=== PATIENT | male | born 1945 | race African-American/Black ===

== ENCOUNTER 2021-03-12 08:20 | Outpatient (REF) | payer OTHER, SELFPAY ==
--- NOTE | ~2021-03-12 | XR_ITS ---
EXAMINATION: XR KNEE AP STANDING, BILATERAL XR KNEE, BILATERAL CLINICAL INFORMATION: Pain. COMPARISON: None TECHNIQUE: AP bilateral knee. 2 views each knee. FINDINGS: BILATERAL AP KNEE: There is severe loss of medial compartment joint space with periarticular spurring bilaterally. The lateral compartment joint space is minimally reduced. No loose bodies or bony erosive changes seen. No fracture or dislocation seen. RIGHT KNEE: There is mild loss of patellofemoral compartment joint space with periarticular spurring. No joint effusion seen. There are no loose bodies. There are anterior tibial enthesophytes. LEFT KNEE: There is mild loss of left patellofemoral compartment joint space with periarticular spurring. There is no joint effusion seen. Enthesophytes are seen along the anterior and posterior tibial plateau. No loose bodies or bony erosive changes seen. XR/XR knee standing BI IMPRESSION: Severe medial and mild patellofemoral compartment arthritic changes. There is no abnormal joint effusion except for moderate periarticular spurring and enthesophytes. No loose body seen.
--- NOTE | ~2021-03-12 | XR_ITS ---
EXAMINATION: XR KNEE AP STANDING, BILATERAL XR KNEE, BILATERAL CLINICAL INFORMATION: Pain. COMPARISON: None TECHNIQUE: AP bilateral knee. 2 views each knee. FINDINGS: BILATERAL AP KNEE: There is severe loss of medial compartment joint space with periarticular spurring bilaterally. The lateral compartment joint space is minimally reduced. No loose bodies or bony erosive changes seen. No fracture or dislocation seen. RIGHT KNEE: There is mild loss of patellofemoral compartment joint space with periarticular spurring. No joint effusion seen. There are no loose bodies. There are anterior tibial enthesophytes. LEFT KNEE: There is mild loss of left patellofemoral compartment joint space with periarticular spurring. There is no joint effusion seen. Enthesophytes are seen along the anterior and posterior tibial plateau. No loose bodies or bony erosive changes seen. XR/XR knee RT 2V IMPRESSION: Severe medial and mild patellofemoral compartment arthritic changes. There is no abnormal joint effusion except for moderate periarticular spurring and enthesophytes. No loose body seen.
--- NOTE | ~2021-03-12 | XR_ITS ---
EXAMINATION: XR KNEE AP STANDING, BILATERAL XR KNEE, BILATERAL CLINICAL INFORMATION: Pain. COMPARISON: None TECHNIQUE: AP bilateral knee. 2 views each knee. FINDINGS: BILATERAL AP KNEE: There is severe loss of medial compartment joint space with periarticular spurring bilaterally. The lateral compartment joint space is minimally reduced. No loose bodies or bony erosive changes seen. No fracture or dislocation seen. RIGHT KNEE: There is mild loss of patellofemoral compartment joint space with periarticular spurring. No joint effusion seen. There are no loose bodies. There are anterior tibial enthesophytes. LEFT KNEE: There is mild loss of left patellofemoral compartment joint space with periarticular spurring. There is no joint effusion seen. Enthesophytes are seen along the anterior and posterior tibial plateau. No loose bodies or bony erosive changes seen. XR/XR knee LT 2V IMPRESSION: Severe medial and mild patellofemoral compartment arthritic changes. There is no abnormal joint effusion except for moderate periarticular spurring and enthesophytes. No loose body seen.
== END 2021-03-12 08:21 | disposition home or self-care (01) ==
LOC: HO.HOSX 08:20
PROVIDERS: Visit Provider Physician Assistant
DX: M17.0 Bilateral primary osteoarthritis of knee (principal)
CPT/HCPCS: 20610; 73560; 73565; 99212; J1020

== ENCOUNTER → 2021-06-11 09:07 | Outpatient (BNVA) | payer OTHER, SELFPAY | PROVIDERS: PCP Family Medicine; Visit Provider Physician Assistant | DX: M25.562 Pain in left knee (principal); M25.561 Pain in right knee | CPT/HCPCS: 20610; J7318 ==

== ENCOUNTER 2024-03-30 12:37 | Outpatient (REF) | payer OTHER, SELFPAY ==
--- NOTE | ~2024-03-30 | XR_ITS ---
EXAMINATION: XR BILATERAL KNEES CLINICAL INFORMATION: Pain in left knee. Unilateral primary osteoarthritis right knee. COMPARISON: Bilateral knees 03/12/2021. TECHNIQUE: AP standing, lateral and sunrise views of bilateral knees. FINDINGS: BILATERAL KNEES AP STANDING: Severe narrowing of the bilateral medial compartments with marginal osteophytes redemonstrated. Minimal narrowing of the lateral compartments. The bones are diffusely demineralized. RIGHT KNEE: No significant joint effusion. Increased degenerative changes in the right patellofemoral compartment with narrowing and hypertrophic change. LEFT KNEE: No significant joint effusion. Progression of narrowing of the left patellofemoral compartment with hypertrophic change. XR/XR knee LT 3V IMPRESSION: Severe degenerative changes in the bilateral knees, most notable in the medial compartments.
--- NOTE | ~2024-03-30 | XR_ITS ---
EXAMINATION: XR BILATERAL KNEES CLINICAL INFORMATION: Pain in left knee. Unilateral primary osteoarthritis right knee. COMPARISON: Bilateral knees 03/12/2021. TECHNIQUE: AP standing, lateral and sunrise views of bilateral knees. FINDINGS: BILATERAL KNEES AP STANDING: Severe narrowing of the bilateral medial compartments with marginal osteophytes redemonstrated. Minimal narrowing of the lateral compartments. The bones are diffusely demineralized. RIGHT KNEE: No significant joint effusion. Increased degenerative changes in the right patellofemoral compartment with narrowing and hypertrophic change. LEFT KNEE: No significant joint effusion. Progression of narrowing of the left patellofemoral compartment with hypertrophic change. XR/XR knee RT 3V IMPRESSION: Severe degenerative changes in the bilateral knees, most notable in the medial compartments.
== END 2024-03-30 12:38 | disposition home or self-care (01) ==
LOC: HO.HOSX 12:37
PROVIDERS: Visit Provider Physician Assistant
DX: M17.0 Bilateral primary osteoarthritis of knee (principal)
CPT/HCPCS: 20610; 73562; 99212; J1010

== ENCOUNTER 2024-03-30 14:20 | Outpatient (AMB) | payer OTHER, SELFPAY ==
--- NOTE | 2024-03-30 14:33 | MHC.OFFVIS ---
Vital Signs 03/30/24 14:40 Height 6 ft 2 in Weight 223 lb BMI 28.6 Intake Visit Reasons: OV- B/L knee OA Intake Note: Steve a 78 year old male who presents today as a new patient for an evaluation of bilateral knees. Last Durolane injections on 06/11/21. Patient reports injections provided him with relief up until this point. He states he would like to try cortisone injections again due to them giving him relief for 6 months. Allergies No Known Allergies Allergy (Verified 03/30/24 14:36) HPI HPI OV- B/L knee OA: Details: 78-year-old male who returns to the office today for a follow-up of bilateral knee pain. He currently states he has intermittent pain in his bilateral knees that is aggravated with prolonged standing and ambulation. He continues to work on exercises as instructed. He had his last bilateral Durolane injection on 06/11/21 which provided him good relief until recently. He would like to try cortisone injection again as it previously gave him relief for 6 months. He does not have a history of diabetes. [facility] Social History (Updated 03/30/24 @ 14:40 by Cesilia Cullen) Alcohol intake: never Patient Tobacco Use Status: Never used Tobacco Current occupational status: retired Current occupation: left handed Review of Systems Const All systems reviewed & are unremarkable except as noted in HPI and below Physical Exam Vital Signs: BMI result Body Mass Index 28.6 Extrem Other: Bilateral knee: Skin intact, no erythema or joint effusion. Tenderness along the medial and lateral joint line. Full ROM with crepitus. Negative Tian?s. No ligamentous laxity. NVI. Office Procedures Joint Injection/Drain Joint Injection/Drain Primary Site: right knee Secondary Site: left knee Prep: site was prepped using aseptic technique, ethochloride spray was applied and injection warnings given Injected: 40 mg of, DepoMedrol, with 8 mL of, 1% plain lidocaine and in the joint Approach Used: anterolateral Procedure: The patient tolerated the procedure well and there was some relief with the local anesthesia Coding 25933 - Glenohumeral/Tronchanteric Bursa/Intraarticular Procedure code (CPT) selection complete Results Reviewed Results Reviewed: Xrays were obtained in the office today and personally reviewed by of karissa knee show moderate oa Assessment & Plan Assessment & Plan (1) Bilateral primary osteoarthritis of knee: Code(s): M17.0 - Bilateral primary osteoarthritis of knee Category: Medical Plan We discussed options today which include steroid injection. They did consent to move forward with the bilateral injection, which was tolerated well. I recommended rest, ice and elevation and OTC anti-inflammatories PRN for discomfort. If symptoms persist or worsens over the next 6-8 weeks, patient will contact the office. He is also interested in repeating gel injections, which we will get prior auth for. Orders: Orders XR knee LT 3V 03/30/24 M25.562 - Pain in left knee XR knee RT 3V 03/30/24 M17.11 - Unilateral primary osteoarthritis, right knee Patient Instructions: Scribed for Radha Lima PA-C, by Roderick Bryant biomedical photographer, on 03/30/2024 at 2:15 PM EST.? I, Radha Lima PA-C, have personally reviewed and agree with the information entered by the scribe. Coding Level of Care Code Est Pt Level 3 (73358) Diagnoses Bilateral primary osteoarthritis of knee M17.0 CPT Codes Coding - Joint 7: 00238 - Glenohumeral/Tronchanteric Bursa/Intraarticular ([id number])
[2024-03-30 14:40] VITALS: BMI 28.6
== END 2024-03-30 15:06 | disposition home or self-care (01) ==
PROVIDERS: PCP Family Medicine; Visit Provider Physician Assistant
DX: M17.0 Bilateral primary osteoarthritis of knee (principal)
CPT/HCPCS: 20610; 99213

== ENCOUNTER 2024-11-06 11:32 | Outpatient (AMB) | payer OTHER, SELFPAY ==
--- NOTE | 2024-11-06 11:36 | MHC.OFFVIS ---
Vital Signs 11/06/24 11:41 Height 6 ft 2 in Weight 223 lb BMI 28.6 Intake Visit Reasons: Inj- OA bilateral knee Durolane inj Intake Note: Steve 79 yr old male presents today for his follow up visit for his bilateral knee O.A Durolane injection. Allergies No Known Allergies Allergy (Verified 03/30/24 14:36) Medication List - Last Reconciled 11/06/24 by Radha Lima PA-C acetaminophen ER (Tylenol Arthritis Pain) 650 mg PO Q12H apixaban (Eliquis) 5 mg PO BID aspirin (Adult Low Dose Aspirin) 81 mg PO DAILY pravastatin 10 mg PO BEDTIME HPI HPI Inj- OA bilateral knee Durolane inj: Details: 79-year-old male returns to the office today for bilateral knee pain. He received cortisone injections at his last appointment which was successful. He was approved for gel injections which she would like to proceed with today. [facility] Social History Alcohol intake: never Patient Tobacco Use Status: Never used Tobacco Current occupational status: retired Current occupation: left handed Review of Systems Const All systems reviewed & are unremarkable except as noted in HPI and below Physical Exam Vital Signs: BMI result Body Mass Index 28.6 Extrem Other: Bilateral knee: Skin intact, no erythema or joint effusion. Tenderness along the medial and lateral joint line. Full ROM with crepitus. Negative Tian?s. No ligamentous laxity. NVI. Office Procedures AMB Joint Injection/Aspiration Joint Injection/Aspiration Details: bilat knee durolane Primary Site: right knee Secondary Site: left knee Prep: site was prepped using aseptic technique, ethochloride spray was applied and injection warnings given Injected: in the joint Approach Used: anterolateral Procedure: The patient tolerated the procedure well and there was some relief with the local anesthesia Coding 03912 - Glenohumeral/Tronchanteric Bursa/Intraarticular Procedure code (CPT) selection complete Assessment & Plan Assessment & Plan (1) Bilateral primary osteoarthritis of knee: Code(s): M17.0 - Bilateral primary osteoarthritis of knee Category: Medical Plan: The patient did consent to move forward with the bilateral durolane injection, which was tolerated well.? I recommended rest, ice and elevation and OTC antiinflammatories prn for discomfort. If symptoms persist over the next 6-8 weeks, they will contact our office, otherwise, prn Coding Level of Care Code Procedure Only Diagnoses Bilateral primary osteoarthritis of knee M17.0 CPT Codes Coding - Joint 7: 65239 - Glenohumeral/Tronchanteric Bursa/Intraarticular ([id number])
[2024-11-06 11:41] VITALS: BMI 28.6
--- OUTSIDE RECORDS SUMMARY | 2024-11-06 11:45 | XMS_ITS ---
Author Name [facility] Organization Unknown Results Test Name/Text Value Interpretation Date Range Source TROPONIN I HIGH SENSITIVE 12.4ng/L Normal 0 - 78 [facility] TSH 1.76uIU/mL Normal 0.35 - 4.5 [facility] BILIRUBIN,TOTAL 0.7mg/dL Normal 0.2 - 1 C [facility] ALKALINE PHOSPHATASE 63U/L Normal 50 - 1 36 [facility] GLOBULIN 3.3g/dL Normal 2.4 - 4.2 [facility] A/G RATIO 1.1g/dL Normal [facility] PROTEIN, TOTAL 6.8g/dL Normal 6.4 - 8.2 [facility] TROPONIN I HIGH SENSITIVE 11.9ng/L Normal 0 - 78 [facility] GFRE 72 Normal 60 - [facility] MAGNESIUM 2mg/dL Normal 1.8 - 2.4 [facility] ALBUMIN 3.5g/dL Normal 3.4 - 5 [facility] SODIUM 141mmol/L Normal 136 - 145 [facility] GLUCOSE 111mg/dL Above high normal 74 - 100 [facility] BUN 13mg/dL Normal 7 - 18 [facility] CHLORIDE 112mmol/L Above high normal 98 - 107 [facility] POTASSIUM SERUM 4.8mmol/L Normal 3.5 - 5.1 C [facility] CO2 25mmol/L Normal 21 - 32 [facility] AST (SGOT) 22U/L Normal 15 - 37 [facility] MH ALT (SGPT) 13U/L Normal 12 - 78 [facility] BUN/CREAT.RATIO 12.3 Normal C [facility] CREATININE 1.06mg/dL Normal 0.55 - 1.3 [facility] WBC 4.4K/uL Normal 3.7 - 10.3 [facility] ABSOLUTE GRANULOCYTES 3.1K/uL Normal 2.2 - 7.3 [facility] ABSOLUTE BASO 0K/uL Normal 0 - 0.2 [facility] RBC 5.23M/uL Normal 4.3 - 6 [facility] IMMATURE GRANULOCYTES 1% Above high normal [id number] 0 - 0.45 [facility] EOSINOPHILS 2% Normal 0 - 6 [facility] MPV 10fL Normal 8 - 12 [facility] ABSOLUTE MONOS 0.4K/uL Normal 0.2 - 1.5 [facility] BASOPHILS 1% Normal 0 - 2 [facility] NUCLEATED RBC 0% Normal 0 - 0.2 [facility] MCV 89fL Normal [id number] 83 - 102 [facility] MCH 29PG Normal [id number] 27 - 34 [facility] HCT 46.3% Normal [id number] 40 - 52 [facility] ABSOLUTE LYMPHS 0.8K/uL Below low normal [id number] 1.5 - 4.9 [facility] GRANULOCYTES 70% Normal 23 - 78 [facility] MONOCYTES 9% Normal 0 - 12 [facility] ABSOLUTE EOS 0.1K/uL Normal 0 - 0.7 [facility] LYMPHS 18% Normal 16 - 50 [facility] ABSOLUTE IMMATURE GRANULOCYTES 0K/uL Normal [id number] 0 - 0.3 [facility] HGB 14.9g/dL Normal 13.5 - 18 [facility] RDW 13.6% Above high normal 11.1 - 13 .3 [facility] PLATELET COUNT 173K/uL Normal [id number] 150 - 480 [facility] MCHC 32.2g/dL Normal 31 - 36 [facility] ABSOLUTE NUCLEATED RBC 0K/uL Normal [id number] 0 - 0.012 [facility] PATIENT FASTING? UNKNOWN Normal [id number] [facility]
== END 2024-11-06 12:09 | disposition home or self-care (01) ==
PROVIDERS: PCP Family Medicine; Visit Provider Physician Assistant
DX: M17.0 Bilateral primary osteoarthritis of knee (principal)
CPT/HCPCS: 20610

== ENCOUNTER → 2024-11-06 11:32 | Outpatient (BNVA) | payer OTHER, SELFPAY | PROVIDERS: PCP Family Medicine; Visit Provider Physician Assistant | DX: M17.0 Bilateral primary osteoarthritis of knee (principal) | CPT/HCPCS: 20610; J7318 ==